=== PATIENT | female | born 1965 | race Caucasian/White ===

== ENCOUNTER → 2024-12-09 11:02 | Outpatient (CLI) | payer OTHER, SELFPAY ==
[2024-12-09 12:44] LABS: NT-proBNP (BNP-Adult 18+) < 20 pg/mL (<125); Troponin I < 0.012 ng/mL (0.01-0.034)
== END ==
PROVIDERS: Referring Provider Internal Medicine; Visit Provider Internal Medicine
DX: R00.2 Palpitations (principal); L40.50 Arthropathic psoriasis, unspecified; R06.02 Shortness of breath; Z68.30 Body mass index [BMI] 30.0-30.9, adult
CPT/HCPCS: 36415; 83880; 84484; 99215

== ENCOUNTER → 2024-12-14 14:37 | Outpatient (CLI) | payer OTHER, SELFPAY ==
--- NOTE | 2024-12-14 14:49 | EKG_ITS ---
[facility] [address] [place] [address] Test Date: 2024-12-14 Pat Name: Shelley Amado Department: [facility] Room: Gender: Female Billing Specialist: ELENI : 1965 Requested By: Order Number: [id number] Reading MD: Amor Washington Measurements Intervals [place] Rate: 93 P: 46 MS: 152 QRS: 16 QRSD: 82 T: 70 QT: 346 QTc: 430 Interpretive Statements Normal sinus rhythm Nonspecific ST and T wave abnormality Electronically Signed On 12-15-2024 16:22:07 PDT by Amor Washington
== END ==
LOC: RESP 14:38
PROVIDERS: Referring Provider Internal Medicine; Visit Provider Internal Medicine
DX: L40.50 Arthropathic psoriasis, unspecified (principal); R06.02 Shortness of breath; R00.2 Palpitations
CPT/HCPCS: 93005

== ENCOUNTER → 2024-12-16 10:07 | Outpatient (CLI) | payer OTHER, SELFPAY ==
--- NOTE | 2024-12-16 10:07 | DI.CT.S_ITS ---
PROCEDURE: CT CHEST HIGH RESOLUTION INDICATIONS: sob, abnormal CXR; rule out ILD TECHNIQUE: Noncontrast 1.0 and 5.0 mm thick contiguous axial sections from the pulmonary apex to the posterior costophrenic angles, with 7 mm thick coronal and sagittal MIP reformats. 1 mm thick dynamic expiratory images acquired through the upper, mid, and lower lungs. 1.0 mm thick axial sections acquired from the steven to the posterior costophrenic angles in the prone end-inspiration position. For radiation dose reduction, the following was used: automated exposure control, adjustment of mA and/or kV according to patient size. COMPARISON: [facility], CR, XR CHEST 2 VIEWS, 11/16/2024, 11:33. FINDINGS: Image quality: Diagnostic. Lungs and Pleura: Central and peripheral airways are normal without bronchial wall thickening or bronchiectasis. No nodule, mass, ground-glass opacity, or consolidation.. No pleural effusions or pleural calcifications. Exhalation images demonstrate no significant air trapping or pathologic airway narrowing. Prone imaging demonstrates no new abnormalities. Lower Neck: No enlarged lymph nodes. Cervical spine fusion hardware. Thyroid: Normal CT appearance. Axillae: No enlarged lymph nodes. Chest Wall: No suspicious chest wall lesions. Bones: No suspicious bone lesion. Mild degenerative changes in the spine. Thoracic Vessels: The aorta and pulmonary arteries demonstrate normal size. Mediastinum and Leann: No enlarged lymph nodes. Heart: Heart size is normal. No pericardial effusion. Esophagus: No wall thickening. No hiatal hernia. Upper Abdomen: Visualized upper abdomen solid organs and bowel loops appear normal. IMPRESSION: Interval resolution of previous mild bronchial wall thickening seen by x-ray. No evidence of acute or chronic interstitial lung disease on this high-resolution CT. Dictated by: Elizabeth Sandoval M.D. on 12/16/2024 at 15:41 Approved by: Elizabeth Sandoval M.D. on 12/16/2024 at 15:48
== END ==
PROVIDERS: Referring Provider Internal Medicine; Visit Provider Internal Medicine
DX: R06.02 Shortness of breath (principal); L40.50 Arthropathic psoriasis, unspecified; Z98.1 Arthrodesis status
CPT/HCPCS: 71250